=== PATIENT | male | born 1975 | race Caucasian/White ===

== ENCOUNTER 2024-02-29 00:33 | Emergency (ER) | payer OTHER ==
[2024-02-29 01:33] LABS: Absolute Eosinophils 0.1 K/uL (0-0.5); Absolute Lymphocytes (CBC) 2.3 K/uL (0.7-4.9); Absolute Monocytes 0.5 K/uL (0.1-1.3); Absolute Neutrophil 2.7 K/uL (1.8-8.0); Basophils % 0.3 % (0-1.3); Eosinophils % 1.7 % (0-4.4); Hemoglobin 13.7 g/dL (13.6-17.9); Lymphocytes % 41.4 % (15.3-44.8); MCH 31.5 pg (27.0-35.0); MCHC 35.1 g/dL (32.0-36.0); MCV 89.6 fL (80-100); MPV 7.7 fL (7.6-11.3); Monocytes % 8.4 % (3.3-12.3); Neutrophils % 48.2 % (41.7-73.7); Nucleated Red Blood Cells % 0.1 % (0-0); Platelets 240 thou/uL (152-406); RBC Red Blood Cell Count 4.35 M/uL (4.33-5.43); Red Cell Distribution Width 13.9 % (12.1-15.2)
[2024-02-29 01:39] LABS: PT Prothrombin Time 11.5 SECONDS (9.4-12.5); Protime INR 1.03
[2024-02-29 01:40] LABS: SARS-CoV-2 Antigen CONTROL BLUE LINE VIS/BG OK; SARS-CoV-2 Antigen Rapid Res Negative (Negative)
[2024-02-29 01:45] LABS: Albumin 4.3 g/dL (3.4-5.0); Albumin/Globulin Ratio 1.3 (1.1-1.8); Anion Gap 7.8 mEq/L (5.0-15.0); Bilirubin Direct 0.2 mg/dL (0-0.2); Bilirubin Indirect, Calculated 0.6 mg/dL (0.2-0.8); Bilirubin Total 0.8 mg/dL (0.2-1.0); Globulin 3.2 g/dL (2.3-3.5); Magnesium 2.2 mg/dL (1.6-2.4); Potassium 3.8 mEq/L (3.5-5.1); Protein, Total 7.5 g/dL (6.4-8.2); Troponin High Sensitivity 7.5 pg/mL (<58.9)
--- NOTE | 2024-02-29 03:44 | ER ---
Nurse's Notes [facility] Name: Craig Platt Age: 48 yrs Sex: Male : 1975 Arrival Date: 02/29/2024 Time: 00:33 Bed 3 Private MD: Diagnosis: Acute bronchitis, unspecified Presentation: 02/28 00:57 Chief complaint: Patient states: Been short of breath for a week, I am having trouble vc1 taking a deep breath, once I am able to get a deep breath I feel better. But a few hours ago I started having tingling and numbness to my left arm and leg. Coronavirus screen: Vaccine status: Patient reports receiving the 2nd dose of the covid vaccine. Client denies travel out of the [place] in the last 14 days. shortness of breath, Client presents with at least one sign or symptom that may indicate coronavirus-19. Ebola Screen: Patient negative for fever greater than or equal to 101.5 degrees Fahrenheit, and additional compatible Ebola Virus Disease symptoms Patient denies exposure to infectious person. Patient denies travel to an Ebola-affected area in the 21 days before illness onset. No symptoms or risks identified at this time. Initial Sepsis Screen: Does the patient meet any 2 criteria? No. Patient's initial sepsis screen is negative. Does the patient have a suspected source of infection? No. Patient's initial sepsis screen is negative. Risk Assessment: Do you want to hurt yourself or someone else? Patient reports no desire to harm self or others. Onset of symptoms was February 28, 2024. 00:57 Method Of Arrival: Ambulatory vc1 00:57 Acuity: JULIO CESAR 4 vc1 Triage Assessment: 01:06 General: Appears in no apparent distress. comfortable, slender. General: Behavior is vc1 calm, cooperative, appropriate for age. Pain: Denies pain. EENT: No deficits noted. No signs and/or symptoms were reported regarding the EENT system. Neuro: Level of Consciousness is awake, alert, obeys commands, Oriented to person, place, time, situation, Appropriate for age. Neuro: Reports numbness paresthesias in left leg and left arm few hours ago. Cardiovascular: No deficits noted. Capillary refill < 3 seconds Patient's skin is warm and dry. Respiratory: Reports shortness of breath at rest Onset: The symptoms/episode began/occurred over a week, the patient has mild shortness of breath. Derm: Skin is intact, is healthy with good turgor, Skin is dry, Skin is normal, Skin temperature is warm. Historical: - Allergies: 01:01 No Known Allergies; vc1 - Home Meds: 01:01 None [Active]; vc1 - PMHx: 01:01 None; vc1 - PSHx: 01:01 None; vc1 - Immunization history:: Client reports receiving the 2nd dose of the Covid vaccine, Flu vaccine is not up to date. - Infectious Disease History:: Denies. - Social history:: Smoking status: Patient denies any tobacco usage or history of. - Family history:: not pertinent. Screenin:56 [facility] ED Fall Risk Assessment (Adult) History of falling in the last 3 months, kd3 including since admission No falls in past 3 months (0 pts) Confusion or Disorientation No (0 pts) Intoxicated or Sedated No (0 pts) Impaired Gait No (0 pts) Mobility Assist Device Used No (0 pt) Altered Elimination No (0 pt) Score/Fall Risk Level 0 - 2 = Low Risk Oriented to surroundings. Abuse screen: Denies threats or abuse. Denies injuries from another. Nutritional screening: No deficits noted. 01:17 Tuberculosis screening: No symptoms or risk factors identified. vc1 Assessment: 00:56 General: Appears in no apparent distress. Behavior is calm, cooperative. Pain: Denies kd3 pain. Neuro: Level of Consciousness is awake, alert, obeys commands, Oriented to person, place, time, situation. Cardiovascular: Patient's skin is warm and dry. Rhythm is regular. Respiratory: Airway is patent Trachea midline Respiratory effort is even, unlabored, Breath sounds are clear bilaterally. Musculoskeletal: Reports numbness in left arm and left leg. 02:21 Reassessment: No changes from previously documented assessment. Patient and/or family kd3 updated on plan of care and expected duration. Pain level reassessed. Patient is alert, oriented x 3, equal unlabored respirations, skin warm/dry/pink. 03:37 Reassessment: Patient appears in no apparent distress at this time. Patient and/or jb4 family updated on plan of care and expected duration. Pain level reassessed. Patient is alert, oriented x 3, equal unlabored respirations, skin warm/dry/pink. Vital Signs: 00:57 BP 143 / 95; Pulse 68; Resp 15; Temp 98; Pulse Ox 100% ; Weight 104.33 kg; Height 5 ft. vc1 10 in. ; Pain 0/10; 02:21 BP 134 / 89; Pulse 60; Resp 17; Pulse Ox 98% on R/A; kd3 03:37 BP 132 / 87; Pulse 64; Resp 16; Pulse Ox 98% on R/A; jb4 00:57 Body Mass Index 33.00 (104.33 kg, 177.8 cm) vc1 00:57 Pain Scale: Adult vc1 [place] Coma Score: 04:29 Eye Response: spontaneous(4). Motor Response: obeys commands(6). Verbal Response: sp4 oriented(5). Total: 15. NIH Stroke Scale Scores: 00:56 NIHSS Score: 0 kd3 04:29 NIHSS Score: 0 sp4 ED Course: 00:44 Patient arrived in ED. rv1 00:44 Benjamín White MD is Attending Physician. sp4 00:56 Patricia Vargas, IVIS is Primary Nurse. kd3 00:57 No provider procedures requiring assistance completed. Initial lab(s) drawn, by nd, kd3 sent to lab. EKG done, by ED staff, reviewed by Benjamín White MD. Inserted saline lock: 20 gauge in right antecubital area, using aseptic technique. Blood collected. 01:00 Basic Metabolic Panel Sent. kd3 01:00 CBC with Diff Sent. kd3 01:00 LFT's Sent. kd3 01:00 Magnesium Sent. kd3 01:00 NT PRO-BNP Sent. kd3 01:00 PT-INR Sent. kd3 01:00 Troponin HS Sent. kd3 01:00 SARS RAPID Sent. kd3 01:01 Triage completed. vc1 01:03 Arm band placed on right wrist. vc1 01:04 Patient has correct armband on for positive identification. Bed in low position. Call vc1 light in reach. Adult w/ patient. manager monitoring on. Pulse ox on. NIBP on. 01:40 XRAY Chest (1 view) In Process Unspecified. EDMS 03:55 IV discontinued, intact, bleeding controlled, No redness/swelling at site. Pressure kd3 dressing applied. 03:55 Provided Education on: Xray . kd3 Administered Medications: No medications were administered Medication: 01:04 VIS not applicable for this client. vc1 Outcome: 03:44 Discharge ordered by sp4 03:55 Discharged to home ambulatory, kd3 03:55 Condition: stable 03:55 Discharge instructions given to patient, family, Instructed on discharge instructions, follow up and referral plans. Demonstrated understanding of instructions, follow-up care, 03:56 Patient left the ED. kd3 NIH Stroke Scale - NIH Stroke Score Date: 02/29/2024 Time: 00:56 Total Score = 0 10. Dysarthria (speech clarity - read or repeat words) - 0(Normal) 11. Extinction and Inattention (visual/tactile/auditory/spatial/personal) - 0(No abnormality) 1a. Level of Consciousness (LOC) - 0(Alert) 1b. Level of Consciousness (LOC) (Month \T\ Age) - 0(Both) 1c. LOC Commands (Open \T\ Closes Eyes/Back Stayer) - 0(Both) 2. Best Gaze (Lateral Gaze Paresis) - 0(Normal) 3. Visual Field Loss - 0(No visual loss) 4. Facial Palsy - 0(Normal) 5a. Left Arm: Motor (10-second hold) - 0(No drift) 5b. Right Arm: Motor (10-second hold) - 0(No drift) 6a. Left Leg: Motor (5-second hold - always test supine) - 0(No drift) 6b. Right Leg: Motor (5-second hold - always test supine) - 0(No drift) 7. Limb Ataxia (finger/nose \T\ heel/martino - test with eyes open) - 0(Absent) 8. Sensory Loss (pinprick arms/legs/face) - 0(Normal) 9. Best Language: Aphasia (description/naming/reading) - 0(No aphasia) Initials: kd3 NIH Stroke Scale - NIH Stroke Score Date: 02/29/2024 Time: 04:29 Total Score = 0 10. Dysarthria (speech clarity - read or repeat words) - 0(Normal) 11. Extinction and Inattention (visual/tactile/auditory/spatial/personal) - 0(No abnormality) 1a. Level of Consciousness (LOC) - 0(Alert) 1b. Level of Consciousness (LOC) (Month \T\ Age) - 0(Both) 1c. LOC Commands (Open \T\ Closes Eyes/Back Stayer) - 0(Both) 2. Best Gaze (Lateral Gaze Paresis) - 0(Normal) 3. Visual Field Loss - 0(No visual loss) 4. Facial Palsy - 0(Normal) 5a. Left Arm: Motor (10-second hold) - 0(No drift) 5b. Right Arm: Motor (10-second hold) - 0(No drift) 6a. Left Leg: Motor (5-second hold - always test supine) - 0(No drift) 6b. Right Leg: Motor (5-second hold - always test supine) - 0(No drift) 7. Limb Ataxia (finger/nose \T\ heel/martino - test with eyes open) - 0(Absent) 8. Sensory Loss (pinprick arms/legs/face) - 0(Normal) 9. Best Language: Aphasia (description/naming/reading) - 0(No aphasia) Initials: sp4 Signatures: Dispatcher [employer] EDMikel Schaffer RN RN jb4 Patricia Vargas RN RN kd3 Una Rankin RN RN vc1 Shiela Rahman rv1 Benjamín White MD MD sp4 Corrections: (The following items were deleted from the chart) 03:39 03:37 Reassessment: Patient appears in no apparent distress at this time. jb4 Patient and/or family updated on plan of care and expected duration. Pain level reassessed. Patient is alert, oriented x 3, equal unlabored respirations, skin warm/dry/pink. jb4 03:40 03:37 BP 138 / 49; Pulse 100bpm; Resp 16bpm; Pulse Ox 98% RA; jb4 jb4
--- NOTE | 2024-02-29 03:44 | EDPHYS ---
Physician Documentation [facility] Name: Craig Platt Age: 48 yrs Sex: Male : 1975 Arrival Date: 02/29/2024 Time: 00:33 Bed 3 Private MD: ED Physician Benjamín White HPI: 02/28 00:44 This 48 yrs old Male presents to ER via Unassigned with complaints of sp4 numbness . 04:29 40-year-old male presents with complaint of a left arm numbness also shortness of sp4 breath dyspnea cough for the past 1 week. Historical: - Allergies: 01:01 No Known Allergies; vc1 - Home Meds: 01:01 None [Active]; vc1 - PMHx: :01 None; vc1 - PSHx: 01:01 None; vc1 - Immunization history:: Client reports receiving the 2nd dose of the Covid vaccine, Flu vaccine is not up to date. - Infectious Disease History:: Denies. - Social history:: Smoking status: Patient denies any tobacco usage or history of. - Family history:: not pertinent. ROS: 04:29 Constitutional: Negative for fever, chills, and weight loss, positive for dyspnea , sp4 positive numbness, positive cough 04:29 All other systems are negative, Exam: 04:29 Constitutional: This is a well developed, well nourished patient who is awake, alert, sp4 and in no acute distress. Head/Face: Normocephalic, atraumatic. Eyes: Pupils equal round and reactive to light, extra-ocular motions intact. Lids and lashes normal. Conjunctiva and sclera are not injected. Cornea within normal limits. Periorbital areas with no swelling, redness, or edema. ENT: Nares patent. No nasal discharge, no septal abnormalities noted. Tympanic membranes are normal and external auditory canals are clear. Oropharynx with no redness, swelling, or masses, exudates, or evidence of obstruction, uvula midline. Mucous membranes moist. Neck: Trachea midline, no thyromegaly or masses palpated, and no cervical lymphadenopathy. Supple, full range of motion without nuchal rigidity, or vertebral point tenderness. Chest/axilla: Normal chest wall appearance and motion. Nontender with no deformity. No lesions are appreciated. Cardiovascular: Regular rate and rhythm with a normal S1 and S2. No gallops, murmurs, or rubs. Normal PMI, no JVD. No pulse deficits. Respiratory: Lungs have equal breath sounds bilaterally, clear to auscultation and percussion. No rales, rhonchi or wheezes noted. No increased work of breathing, no retractions or nasal flaring. Abdomen/GI: Soft, with normal bowel sounds. No distension or tympany. No guarding or rebound. No evidence of tenderness throughout. Back: No spinal tenderness. No costovertebral tenderness. Skin: Warm, dry with normal turgor. Normal color with no rashes, no lesions, and no evidence of cellulitis. MS/ Extremity: Pulses equal, no cyanosis. Neurovascular intact. Full, normal range of motion. Neuro: Awake and alert, GCS 15, oriented to person, place, time, and situation. Cranial nerves II-XII grossly intact. Motor strength 5/5 in all extremities. Sensory grossly intact. Psych: Awake, alert, with orientation to person, place and time. Behavior, mood, and affect are within normal limits 04:30 ECG was reviewed by the Attending Physician. EKG at 0 100 normal sinus rhythm normal sp4 EKG Vital Signs: 00:57 BP 143 / 95; Pulse 68; Resp 15; Temp 98; Pulse Ox 100% ; Weight 104.33 kg; Height 5 ft. vc1 10 in. ; Pain 0/10; 02:21 BP 134 / 89; Pulse 60; Resp 17; Pulse Ox 98% on R/A; kd3 03:37 BP 132 / 87; Pulse 64; Resp 16; Pulse Ox 98% on R/A; jb4 00:57 Body Mass Index 33.00 (104.33 kg, 177.8 cm) vc1 00:57 Pain Scale: Adult vc1 NIH Stroke Scale Scores: 00:56 NIHSS Score: 0 kd3 04:29 NIHSS Score: 0 sp4 [place] Coma Score: 04:29 Eye Response: spontaneous(4). Motor Response: obeys commands(6). Verbal Response: sp4 oriented(5). Total: 15. MDM: 00:53 Patient medically screened. sp4 04:30 Differential Diagnosis altered mental status, sepsis, flu. Data reviewed: vital signs, sp4 nurses notes, lab test result(s), EKG, radiologic studies, plain films. Consideration of Admission/Observation Escalation of care including admission/observation considered. 04:32 ED course: Workup today is normal, stroke scale negative, no sign of CVA. No sign of sp4 bacterial pneumonia. Patient stable for discharge home with as needed cough medication. 02/28 00:53 Order name: Basic Metabolic Panel; Complete Time: 03:38 sp4 02/28 00:53 Order name: CBC with Diff; Complete Time: 03:38 sp4 02/28 00:53 Order name: LFT's; Complete Time: 03:38 sp4 02/28 00:53 Order name: Magnesium; Complete Time: 03:38 sp4 02/28 00:53 Order name: NT PRO-BNP; Complete Time: 03:38 sp4 02/28 00:53 Order name: PT-INR; Complete Time: 03:38 sp4 02/28 00:53 Order name: Troponin HS; Complete Time: 03:38 sp4 02/28 00:53 Order name: SARS RAPID; Complete Time: 03:38 sp4 02/28 00:53 Order name: XRAY Chest (1 view) sp4 02/28 00:53 Order name: Cardiac monitoring; Complete Time: 01:00 sp4 02/28 00:53 Order name: EKG - Nurse/Tech; Complete Time: 01:00 sp4 02/28 00:53 Order name: IV Saline Lock; Complete Time: 01:00 sp4 02/28 00:53 Order name: Labs collected and sent; Complete Time: 01:00 sp4 02/28 00:53 Order name: O2 Per Protocol; Complete Time: 01:00 sp4 02/28 00:53 Order name: O2 Sat Monitoring; Complete Time: 01:00 sp4 EC:30 Rate is 63 beats/min. Rhythm is regular, Normal Sinus Rhythm. QRS [place] is Normal. [place] sp4 interval is normal. QRS interval is normal. QT interval is normal. No Q waves. T waves are Normal. No ST changes noted. Clinical impression: Normal ECG. Interpreted by me. Reviewed by me. Administered Medications: No medications were administered Disposition Summary: 02/29/24 03:44 Discharge Ordered Notes: Location: Home sp4 Problem: new sp4 Symptoms: have improved sp4 Condition: Stable sp4 Diagnosis - Acute bronchitis, unspecified sp4 Followup: sp4 - With: Private Physician - When: As needed - Reason: Discharge Instructions: - Discharge Summary Sheet sp4 - Acute Bronchitis, Adult, [id number] sp4 Forms: - Patient Portal Instructions sp4 Prescriptions: - Ventolin HFA 90 mcg/actuation Inhalation HFA Aerosol Inhaler - inhale 2 puff INHALATION route every 4 hours PRN cough, Dispense with Spacer; sp4 1 unit; Refills: 0, Product Selection Permitted - dextromethorphan-guaifenesin 20-400 mg Oral tablet - take 1 tablet ORAL route every 6 hours PRN cough; 40 tablet; Refills: 0, sp4 Product Selection Permitted NIH Stroke Scale - NIH Stroke Score Date: 02/29/2024 Time: 00:56 Total Score = 0 10. Dysarthria (speech clarity - read or repeat words) - 0(Normal) 11. Extinction and Inattention (visual/tactile/auditory/spatial/personal) - 0(No abnormality) 1a. Level of Consciousness (LOC) - 0(Alert) 1b. Level of Consciousness (LOC) (Month \T\ Age) - 0(Both) 1c. LOC Commands (Open \T\ Closes Eyes/Aerial Photograph Interpreter) - 0(Both) 2. Best Gaze (Lateral Gaze Paresis) - 0(Normal) 3. Visual Field Loss - 0(No visual loss) 4. Facial Palsy - 0(Normal) 5a. Left Arm: Motor (10-second hold) - 0(No drift) 5b. Right Arm: Motor (10-second hold) - 0(No drift) 6a. Left Leg: Motor (5-second hold - always test supine) - 0(No drift) 6b. Right Leg: Motor (5-second hold - always test supine) - 0(No drift) 7. Limb Ataxia (finger/nose \T\ heel/martino - test with eyes open) - 0(Absent) 8. Sensory Loss (pinprick arms/legs/face) - 0(Normal) 9. Best Language: Aphasia (description/naming/reading) - 0(No aphasia) Initials: kd3 NIH Stroke Scale - NIH Stroke Score Date: 02/29/2024 Time: 04:29 Total Score = 0 10. Dysarthria (speech clarity - read or repeat words) - 0(Normal) 11. Extinction and Inattention (visual/tactile/auditory/spatial/personal) - 0(No abnormality) 1a. Level of Consciousness (LOC) - 0(Alert) 1b. Level of Consciousness (LOC) (Month \T\ Age) - 0(Both) 1c. LOC Commands (Open \T\ Closes Eyes/Aerial Photograph Interpreter) - 0(Both) 2. Best Gaze (Lateral Gaze Paresis) - 0(Normal) 3. Visual Field Loss - 0(No visual loss) 4. Facial Palsy - 0(Normal) 5a. Left Arm: Motor (10-second hold) - 0(No drift) 5b. Right Arm: Motor (10-second hold) - 0(No drift) 6a. Left Leg: Motor (5-second hold - always test supine) - 0(No drift) 6b. Right Leg: Motor (5-second hold - always test supine) - 0(No drift) 7. Limb Ataxia (finger/nose \T\ heel/martino - test with eyes open) - 0(Absent) 8. Sensory Loss (pinprick arms/legs/face) - 0(Normal) 9. Best Language: Aphasia (description/naming/reading) - 0(No aphasia) Initials: sp4 Signatures: Dispatcher [employer] EDMS Una Rankin RN RN vc1 Benjamín White MD MD sp4 Corrections: (The following items were deleted from the chart) 00:53 00:53 BASIC METABOLIC PANEL+C.LAB.BRZ ordered. EDMS EDMS 00:53 00:53 CBC+H.LAB.BRZ ordered. EDMS EDMS 00:53 00:53 HEPATIC FUNCTION+C.LAB.BRZ ordered. EDMS EDMS 00:53 00:53 MAGNESIUM+C.LAB.BRZ ordered. EDMS EDMS 00:53 00:53 PROBNP+C.LAB.BRZ ordered. EDMS EDMS 00:53 00:53 PROTIME (+INR)+COAG.LAB.BRZ ordered. EDMS EDMS 00:53 00:53 Troponin High Sensitivity+C.LAB.BRZ ordered. EDMS EDMS 00:53 00:53 Chest Single View+RAD.RAD.BRZ ordered. EDMS EDMS 00:53 00:53 SARS-COV-2 Antigen Rapid+I.LAB.BRZ ordered. EDMS EDMS
--- NOTE | 2024-02-29 10:52 | RAD REPORT ---
EXAM DESCRIPTION: Chest Single View CLINICAL HISTORY: 8 years Male, Dyspnea. COMPARISON: None. IMPRESSION: No focal lung consolidation. No pleural effusion. No pneumothorax. Cardiomediastinal silhouette is within normal limits. No acute osseous abnormality. Electronically signed by: Stephane Barrientos DO 02/29/2024 02:01 AM CDT RP 9 Due to temporary technical issues with the PACS/Fluency reporting system, reports are being signed by the in house radiologist without review as a courtesy to ensure prompt reporting. The interpreting r adiologist is fully responsible for the content of the report.
--- NOTE | 2024-02-29 10:54 | EKG ---
Test Date: 2024-02-29 Test Time: 01:00:49 Retreader: PEREZ MEASUREMENT RESULTS: Intervals: Rate: 63 CO: 172 QRSD: 90 QT: 400 QTc: 409 [place]: P: 26 CO: 172 QRS: 86 T: 22 INTERPRETIVE STATEMENTS: Normal sinus rhythm Normal ECG No previous ECG available for comparison Electronically Signed On 02-29-24 10:53:31 CDT by John Perez
[2024-02-29 11:31] VITALS: BP 132/87; TEMP 98; O2SAT 98
== END 2024-02-29 03:56 | disposition home or self-care (01) ==
LOC: ER 00:33
DX: J20.9 Acute bronchitis, unspecified (principal); R20.0 Anesthesia of skin; Z11.52 Encounter for screening for COVID-19
CPT/HCPCS: 36415; 71045; 80048; 80076; 83735; 83880; 84484; 85025; 85610; 87811; 93005; 99285